=== PATIENT | female | born 1970 | race Caucasian/White ===

== ENCOUNTER 2016-10-31 11:39 | Emergency (ER) | payer SELFPAY | END 2016-10-31 13:21 | disposition home or self-care (01) | LOC: D.ER 11:39 | DX: S83.92XA Sprain of unspecified site of left knee, initial encounter (principal); X58.XXXA Exposure to other specified factors, initial encounter; F17.200 Nicotine dependence, unspecified, uncomplicated ==

== ENCOUNTER 2016-11-13 11:44 | Emergency (ER) | payer MEDICAID | END 2016-11-13 13:45 | disposition home or self-care (01) | LOC: D.ER 11:44 | DX: L50.1 Idiopathic urticaria (principal); J45.909 Unspecified asthma, uncomplicated ==